=== PATIENT | female | born 1965 | race Caucasian/White ===

== ENCOUNTER 2017-09-15 18:52 | Emergency (ER) | payer OTHER ==
--- NOTE | 2017-09-15 20:18 | ERPHSYRPT ---
- History of Present Illness Time Seen by Provider: 09/15/17 19:55 Source: patient Exam Limitations: clinical condition Patient Subjective Stated Complaint: pt states that on friday while working she rolled her ankle and hurt her rt ankle and lt foot. states lt foot is hurting at the great toe and the bottom of the foot in the arch area Triage Nursing Assessment: pt alert and oriented, answers questions approp. pt ambualtory with slightly limping gait noted. respirations nonlabored with lungs cta. skin pink warm and dry. swelling noted to rt ankle with bruising. bruising noted to lt great toe and bottom of lt foot. Physician History: PATIENT STEPPED OFF STAIRS 3 DAYS AGO SUSTAINED INJURY TO RIGHT ANKLE WITH PAIN AND BRUSING AND LEFT FOOT WITH PAIN AND BRUISING WORSE UPON WEIGHT BEARING. Occurred: days ago Reason for Fall: slipped Injuries/Pain Location: lower extremity Loss of Consciousness: no loss of consciousness Quality: throbbing Severity of Pain-Max: moderate Severity of Pain-Current: moderate Modifying Factors: Improves With: other (WEIGHT BEARING) Associated Symptoms (Fall): extremity injury Allergies/Adverse Reactions: acetaminophen [From Tylenol] Allergy (Severe, Verified 09/15/17 20:01) Swelling of Tongue and Lips latex Allergy (Severe, Verified 09/15/17 20:01) Swelling of Tongue and Lips prochlorperazine edisylate [From Compazine] Allergy (Severe, Verified 09/15/17 20:01) Difficulty Breathing prochlorperazine maleate [From Compazine] Allergy (Severe, Verified 09/15/17 20: 01) Difficulty Breathing Home Medications: Albuterol Sulfate Mdi [Proair Hfa MDI] 8.5 gm IH Q4HPRN PRN 03/05/13 [ History] Hydrocodon/Ibupr 7.5mg/200mg [Vicoprofen 7.5mg/200mg Tablet] 1 tab PO Q4H PRN PRN 03/05/13 [History] Ranitidine HCl [Zantac] 300 mg PO BID 03/05/13 [History] Hx Tetanus, Diphtheria Vaccination/Date Given: Yes (up to date) Hx Influenza Vaccination/Date Given: No Hx Pneumococcal Vaccination/Date Given: No Immunizations Up to Date: Yes - Review of Systems Constitutional: No Symptoms Musculoskeletal: Injury, Joint Pain, Joint Swelling, Other (BRUISING) - Past Medical History Pertinent Past Medical History: Yes Neurological History: No Pertinent History ENT History: No Pertinent History Cardiac History: No Pertinent History Respiratory History: Asthma Endocrine Medical History: No Pertinent History Musculoskeletal History: Other GI Medical History: GERD History: No Pertinent History Psycho-Social History: No Pertinent History Female Reproductive Disorders: No Pertinent History Other Medical History: bilateral hip dyspasia - Past Surgical History Past Surgical History: Yes Neuro Surgical History: No Pertinent History Cardiac: No Pertinent History Respiratory: No Pertinent History Gastrointestinal: No Pertinent History Genitourinary: No Pertinent History Musculoskeletal: Joint Replacement, Orthopedic Surgery Female Surgical History: Section Other Surgical History: multiple hip surgeries, pelvis reconstruction bilat - Social History Smoking Status: Never smoker Exposure to second hand smoke: No Drug Use: none Patient Lives Alone: No - Female History Hx Last Menstrual Period: yrs - Nursing Vital Signs Nursing Vital Signs: Initial Vital Signs Temperature 98.5 F 09/15/17 19:49 Pulse Rate 77 09/15/17 19:49 Respiratory Rate 18 09/15/17 19:49 Blood Pressure 121/73 09/15/17 19:49 O2 Sat by Pulse Oximetry 100 09/15/17 19:49 Pain Scale Pain Intensity 3 - Physical Exam SpO2: 100 Oxygen Delivery: Room Air - Radiology Exams Right Ankle X-ray Interpretation: Interpreted by me (OLD AVULSION FRACTURE LATERAL MALLEOLUS RIGHT ANKLE) Right Foot X-ray Interpretation: Interpreted by me (NO EVIDENCE OF FRACTURE OR DISLOCATION) Left Foot X-ray Interpretation: Interpreted by me, Negative, No Fracture Ordered Tests: Active Orders 24 hr Category Date Time Status ANKLE (3 VIEWS) Stat Exams 09/15/17 20:13 Taken FOOT (MINIMUM 3 VIEWS) Stat Exams 09/15/17 20:09 Taken FOOT (MINIMUM 3 VIEWS) Stat Exams 09/15/17 20:09 Taken - Progress Progress Note: 09/15/17 20:57 ADMINISTERED VELCRO ANKLE SPLINT RIGHT ANKLE, AND CRUTCHES Counseled pt/family regarding: diagnosis, need for follow-up, rad results - Departure Time of Disposition: 21:08 Departure Disposition: Home Clinical Impression: CONTUSION STRAIN RIGHT FOOT/ANKLE Condition: Stable Critical Care Time: No Referrals: RUBI MORRIS [Primary Care Provider] - Additional Instructions: WEAR RIGHT ANKLE VELCRO SPLINT FOR COMFORT X 4-5 DAYS. AMBULATE USING CRUTCHES NONWEIGHT BEARING LEFT FOOT FOR 5 DAYS. CONTINUE ALL CURRENT MEDICATIONS. CONSULT YOUR PRIMARY CARE PROVIDER FOR FOLLOWUP IN 1 WEEK.
[2017-09-15 21:33] VITALS: BP 114/71; PULSE 87; O2SAT 98
--- NOTE | 2017-09-16 08:45 | XRAY ---
Indication: Pain following fall. Comparison: None 3 views of the right ankle demonstrates tiny heel spurs and small well-circumscribed ossification adjacent to the tip of the lateral malleolus either degenerative versus old injury. No other bony, articular, or soft tissue abnormalities.
--- NOTE | 2017-09-16 08:47 | XRAY ---
Indication: Pain following fall. Comparison: None 3 nonweightbearing views of the right foot demonstrates tiny heel spurs. No other bony, articular, or soft tissue abnormalities.
--- NOTE | 2017-09-16 08:47 | XRAY ---
Indication: Pain following fall. Comparison: None 3 nonweightbearing views of the left foot demonstrates small heel spurs and mild/moderate first MTP degenerative changes. No other bony, articular, or soft tissue abnormalities.
== END 2017-09-15 21:42 | disposition home or self-care (01) ==
LOC: ED 18:52
DX: S93.401A Sprain of unspecified ligament of right ankle, initial encounter (principal); M25.471 Effusion, right ankle; S90.01XA Contusion of right ankle, initial encounter; X58.XXXA Exposure to other specified factors, initial encounter; Y99.0 Civilian activity done for income or pay
CPT/HCPCS: 73610; 73630; 99282

== ENCOUNTER 2020-11-28 07:31 | Emergency (ER) | payer OTHER ==
--- NOTE | 2020-11-28 07:49 | ERPHSYRPT ---
- History of Present Illness Time Seen by Provider: 11/28/20 07:40 Patient Subjective Stated Complaint: Pt states "I fell and hit my right elbow and my right hip." Triage Nursing Assessment: Pt presented alert and oriented X 3, skin pwd Pt ambulates with a slow limp. PT has no bruising or swelling noted to elbow or hip. PT moaning when moving. Physician History: Patient is a 55-year-old female presents to our ED with complaints of right hip and elbow pain. Patient had a mechanical fall prior to arrival. Patient was at a gas station when her leg twisted. Patient fell onto her right side. Patient complains of pain in her right elbow and right hip. She admits to history of right total hip arthroplasty. No other injuries reported. No BHT or LOC. No neck pain. Cervical spine cleared clinically. The fall was not associated with any sort of neuro or cardiovascular symptomology. No chest pain or shortness of breath. No nausea vomiting or diaphoresis. Patient voices no other complaints concerns at this time. Occurred: just prior to arrival Reason for Fall: fell from standing pos Injuries/Pain Location: upper extremity, lower extremity Loss of Consciousness: no loss of consciousness Quality: aching Severity of Pain-Max: moderate Severity of Pain-Current: mild Modifying Factors: Improves With: movement Associated Symptoms (Fall): denies symptoms, No chest pain, No lightheadedness, No muscle spasms, No nausea, No neck pain, No ringing in ears, No seizures, No shortness of breath, No slurred speech, No trouble walking, No vomiting, No vision changes Allergies/Adverse Reactions: acetaminophen [From Tylenol] Allergy (Severe, Verified 09/15/17 20:01) Swelling of Tongue and Lips latex Allergy (Severe, Verified 09/15/17 20:01) Swelling of Tongue and Lips prochlorperazine edisylate [From Compazine] Allergy (Severe, Verified 09/15/17 20:01) Difficulty Breathing prochlorperazine maleate [From Compazine] Allergy (Severe, Verified 09/15/17 20:01) Difficulty Breathing Home Medications: Albuterol Sulfate Mdi [Proair Hfa MDI] 8.5 gm IH Q4HPRN PRN 03/05/13 [History] Hydrocodon/Ibupr 7.5mg/200mg [Vicoprofen 7.5mg/200mg Tablet] 1 tab PO Q4H PRN PRN 03/05/13 [History] Esomeprazole Magnesium [Nexium] 40 mg PO DAILY 11/28/20 [History] Hx Tetanus, Diphtheria Vaccination/Date Given: No Hx Influenza Vaccination/Date Given: No Hx Pneumococcal Vaccination/Date Given: No Immunizations Up to Date: Yes Travel Risk - International Travel Have you traveled outside of the country in past 3 weeks: No - Coronavirus Screening Are you exhibiting any of the following symptoms?: No Close contact with a COVID-19 positive Pt in past 14-21 Days: No - Vaccine Status Have you recieved a Covid-19 vaccination: Yes [employer]: [employer] - Review of Systems Constitutional: No Symptoms, No Fever, No Chills Eyes: No Symptoms Ears, Nose, & Throat: No Symptoms Respiratory: No Symptoms, No Cough, No Dyspnea Cardiac: No Symptoms, No Chest Pain, No Edema, No Syncope Abdominal/Gastrointestinal: No Symptoms, No Abdominal Pain, No Nausea, No Vomiting, No Diarrhea Genitourinary Symptoms: No Symptoms, No Dysuria Musculoskeletal: No Symptoms, No Back Pain, No Neck Pain Skin: No Symptoms, No Rash Neurological: No Symptoms, No Dizziness, No Focal Weakness, No Sensory Changes Psychological: No Symptoms Endocrine: No Symptoms Hematologic/Lymphatic: No Symptoms Immunological/Allergic: No Symptoms All Other Systems: Reviewed and Negative - Past Medical History Pertinent Past Medical History: Yes Neurological History: No Pertinent History ENT History: No Pertinent History Cardiac History: No Pertinent History Respiratory History: Asthma Endocrine Medical History: No Pertinent History Musculoskeletal History: Osteoarthritis GI Medical History: GERD History: No Pertinent History Psycho-Social History: No Pertinent History Female Reproductive Disorders: No Pertinent History Other Medical History: notes she is "bone on bone" on B knees. - Past Surgical History Past Surgical History: Yes Neuro Surgical History: No Pertinent History Cardiac: No Pertinent History Respiratory: No Pertinent History Gastrointestinal: No Pertinent History Genitourinary: No Pertinent History Musculoskeletal: Joint Replacement, Orthopedic Surgery Female Surgical History: Section Other Surgical History: multiple hip surgeries, pelvis reconstruction bilat. left shoulder - Social History Smoking Status: Never smoker Exposure to second hand smoke: No Drug Use: none Patient Lives Alone: No - Nursing Vital Signs Nursing Vital Signs: Initial Vital Signs Temperature 97.8 F 11/28/20 07:38 Pulse Rate 74 11/28/20 07:38 Respiratory Rate 20 11/28/20 07:38 Blood Pressure 117/75 11/28/20 07:38 O2 Sat by Pulse Oximetry 99 11/28/20 07:38 Pain Scale Pain Intensity 4 - Randall Coma Score Best Eye Response (Randall): (4) open spontaneously Best Verbal Response ([place]): (5) oriented Best Motor Response (Randall): (6) obeys commands [place] Total: 15 - Physical Exam General Appearance: no apparent distress, alert Head Injury: no evidence of injury Eye Exam: PERRL/EOMI ENT Exam: airway nml, No evidence of ENT injury, No dental injury, No clear fluid (ears), No clear fluid (nose) Neck Exam: supple, trachea midline, full range of motion, normal alignment, normal inspection, No tenderness Respiratory/Chest Exam: normal breath sounds, No chest tenderness, No respiratory distress Cardiovascular Exam: normal heart sounds, regular rate/rhythm Gastrointestinal Exam: soft, No tenderness, No distention, No guarding, No ecchymosis Back Exam: normal inspection, No vertebral tenderness Extremity Exam: normal inspection, pelvis stable, bony point tenderness (Tenderness to palpation at right elbow and right hip. Overlying soft tissue intact. No evidence of trauma no bruising or swelling. No lacerations. Range of motion somewhat limited due to pain. Patient is ambulatory however gait is mildly antalgic due to right hip pain. NVI distally all 4 extre), No deformities Peripheral Pulses: dorsalis-pedis (R): 2+, dorsalis-pedis (L): 2+ Neurologic Exam: alert, oriented x 3, cooperative, sensation nml, No motor deficits Skin Exam: normal color, warm, dry SpO2 Interpretation: normal SpO2: 99 O2 Delivery: Room Air - Course Nursing assessment & vital signs reviewed: Yes - Radiology Exams Elbow X-ray Interpretation: Teleradiologist Report (Mild osteopenia and tiny spurring of the olecranon/coronoid process. Triceps tendon ossification presumed deg enerative versus old injury/inflammatory no bony articular or soft tissue abnormalities.) Hip X-ray Interpretation: Teleradiologist Report (Mild osteopenia and bilateral total hip arthroplasty with intact orthopedic hardware. Right acetabulum prosthesis slightly asymmetric compared to contralateral. Comparison studies recommended. No other bony articular or soft tissue abnormalities.) Ordered Tests: Active Orders 24 hr Category Date Time Status ELBOW (MINIMUM 3 VIEWS) Stat Exams 11/28/20 07:39 Completed HIP UNI (2V) INCL PEL IF DONE Stat Exams 11/28/20 07:39 Completed - Progress Progress: improved Progress Note: Patient reassessed. She feels well at rest. Patient claimed pain medication. She states she has Vicoprofen in her car. Patient states she chronically has a limp. She has a history of bilateral hip dysplasia. X-rays are negative for f ractures dislocation. Patient declined a upper extremity sling. Patient states she has slings at home. A work note was provided. Patient to return to work next Friday as long as her symptoms have resolved. Patient voices no other complaints or concerns at this time. She maintains that her fall was mechanical. Patient voices no other complaints or concerns at this time. She states she is ready for discharge. 11/28/20 09:15 Counseled pt/family regarding: diagnosis, need for follow-up, rad results - Departure Departure Disposition: Home Clinical Impression: Osteopenia, Bone spur, Fall, Contusion, hip, Sprain of elbow, right Condition: Stable Critical Care Time: No Referrals: RUBI MORRIS [Primary Care Provider] - Instructions: Contusion (DC), Sprain (DC) Additional Instructions: Discharge/Care Plan HENNINGJARRETT GABBIE was seen on 11/28/20 in the Emergency Room. The patient was counseled regarding Diagnosis,Lab results, Imaging studies, need for follow up and when to return to the Emergency Room. Prescriptions given: Discharge Note I have spoken with the patient and/or caregivers. I have explained the patient's condition, diagnosis and treatment plan based on the information available to me at this time. I have answered the patient's and/or caregiver's questions and addressed any concerns. The patient and/or caregivers have as good understanding of the patient's diagnosis, condition and treatment plan as can be expected at this point. The vital signs have been stable. The patient's condition is stable and appropriate for discharge from the emergency department. The patient will pursue further outpatient evaluation with the primary care physician or other designated or consulting physician as outlined in the discharge instructions. The patient and/or caregivers are agreeable to this plan of care and follow-up instructions have been explained in detail. The patient and/or caregivers have received these instruction. The patient/and or caregivers are aware that any significant change in condition or worsening of symptoms should prompt an immediate return to this or the closest emergency department or call 911. Forms: Work/School Release Form
--- NOTE | 2020-11-28 08:48 | XRAY ---
Indication: Pain following fall. Comparison: None 3 view right elbow demonstrates mild osteopenia and tiny spurring olecranon/coronoid processes. Triceps tendon ossification presumed degenerative versus old injury/inflammation. No other bony, articular, or soft tissue abnormalities.
--- NOTE | 2020-11-28 08:52 | XRAY ---
Indication: Right hip/groin pain following fall. Comparison: None AP pelvis and 2 view right hip demonstrates mild osteopenia and bilateral total hip arthroplasty with intact orthopedic hardware. Right acetabulum prosthesis slightly asymmetric compared to contralateral. Comparison studies recommended. No other bony, articular, or soft tissue abnormalities.
[2020-11-28 09:10] VITALS: BP 133/90; PULSE 72
[2020-11-28 09:15] VITALS: O2SAT 99
== END 2020-11-28 09:24 | disposition home or self-care (01) ==
LOC: ED 07:31
DX: M85.879 Other specified disorders of bone density and structure, unspecified ankle and foot (principal); M85.852 Other specified disorders of bone density and structure, left thigh; M85.851 Other specified disorders of bone density and structure, right thigh; S70.01XA Contusion of right hip, initial encounter; M77.30 Calcaneal spur, unspecified foot; S53.401A Unspecified sprain of right elbow, initial encounter; W19.XXXA Unspecified fall, initial encounter
CPT/HCPCS: 73080; 73502; 99283